=== PATIENT | male | born 1945 | race Caucasian/White ===

== ENCOUNTER 2016-07-16 03:27 | Observation (INO) | payer MEDICARE ==
[2016-07-16] VITALS (9 sets, daily range): BP systolic 102–143; BP diastolic 60–91; PULSE 49–105; TEMP 98–100.2
[~2016-07-16] VITALS: Ht 167.6 cm; Wt 88.4 kg
[2016-07-16 04:14] LABS: BASO # 0.1 (0.0-0.2); BASO % 0.7 % (0.0-2.0); EOS # 0.2 (0.0-0.7); EOS % 1.9 % (0-4.0); GRAN # 8.6 (1.4-6.5); GRAN % 70.5 % (42.2-75.2); HEMATOCRIT 39.9 % (42.0-52.0); HEMOGLOBIN 13.5 g/dl (13.5-18.0); LYMPH # 2.5 (1.2-3.4); LYMPH % 20.1 % (20.0-51.0); MEAN CELL VOLUME 87 fl (80.0-100.0); MEAN CORPUSCULAR HEMOGLOBIN 29 pg (27.0-31.0); MEAN CORPUSCULAR HGB CONC 34 g/dl (33.0-37.0); MEAN PLATELET VOLUME 9.8 fl (7.4-10.4); MONO # 0.8 (0.1-0.6); MONO % 6.5 % (1.7-9.3); PLATELET COUNT 269 K/mm3 (130-400); REDCELL DISTRIBUTION WIDTH-CV 13.7 % (11.5-14.5); WHITE BLOOD COUNT 12.2 K/mm3 (4.8-10.8)
[2016-07-16 04:26] LABS: ADJUSTED CALCIUM 9.1 mg/dL (8.4-10.2); ALANINE AMINOTRANSFERASE 40 U/L (21-72); ALBUMIN 4.2 gm/dL (3.5-5.0); ALKALINE PHOSPHATASE 67 U/L (50-136); ANION GAP 13 mmol/L (7-16); BILIRUBIN,TOTAL 0.6 mg/dL (0.0-1.0); BLOOD UREA NITROGEN 15 mg/dL (9-20); CALCIUM 9.3 mg/dL (8.4-10.2); CARBON DIOXIDE 27 mmol/L (22-30); CHLORIDE 101 mmol/L (98-107); CREATININE, serum 0.97 mg/dL (0.66-1.25); GLUCOSE 135 mg/dL (74-106); LIPASE 51 U/L (23-300); POTASSIUM 3.6 mmol/L (3.4-5.0); SODIUM 141 mmol/L (137-145); TOTAL PROTEIN 7.1 gm/dL (6.4-8.2)
[2016-07-16 04:28] LABS: C-REACTIVE PROTEIN < 0.5 mg/dL (0.0-0.9)
[2016-07-16 04:44] LABS: TROPONIN-I < 0.012 ng/mL (0.000-0.034)
[2016-07-16] MEDS ORDERED: HYZAAR 25 MG-101 TAB PO (04:54)
[2016-07-16] MEDS ORDERED: RT ADVAIR 128 DISKUS IH (04:54)
[2016-07-16] MEDS ORDERED: LIPITOR20 MG PO (04:56)
[2016-07-16] MEDS ORDERED: ZYRTEC 10MG10 MG PO (04:56)
[2016-07-16] MEDS ORDERED: SINGULAIR 110 MG/TAB PO (04:57)
[2016-07-16] MEDS ORDERED: FLOMAX 0.40.4 MG/CAP PO (04:57)
[2016-07-16] MEDS ORDERED: DYMISTA1 SPR NS (04:58)
[2016-07-16] MEDS ORDERED: COMBIGAN 0.2%-0.5 ML OS (05:00)
[2016-07-17 04:19] VITALS: BP 126/64; PULSE 58; TEMP 98.2
[2016-07-17 08:32] VITALS: BP 111/64; PULSE 50; TEMP 99.1
[2016-07-17 12:24] VITALS: BP 118/68; PULSE 78; TEMP 98.8
[2016-07-17] MEDS ORDERED: NORCO 325 MG-51 TAB PO (12:49)
== END 2016-07-17 14:45 | disposition home or self-care (01) ==
LOC: COL.ER 03:27 → JCC 07:07
PROVIDERS: Emergency Medicine
DX: K80.12 Calculus of gallbladder with acute and chronic cholecystitis without obstruction (principal); K66.8 Other specified disorders of peritoneum; J45.909 Unspecified asthma, uncomplicated; E78.5 Hyperlipidemia, unspecified; I10 Essential (primary) hypertension
CPT/HCPCS: G0378; J0694; J1170; J1956; J2175; J2405; J2704; J2710; J3010; J7120; Q9967

== ENCOUNTER 2016-09-14 11:00 | Outpatient (RCR) | payer MEDICARE ==
[~2016-09-14 11:00] MED LIST: COMBIGAN 0.2%-0.5 ML OS; DYMISTA1 SPR NS; FLOMAX 0.40.4 MG/CAP PO; HYZAAR 25 MG-101 TAB PO; LIPITOR20 MG PO; NORCO 325 MG-51 TAB PO; RT ADVAIR 128 DISKUS IH; SINGULAIR 110 MG/TAB PO; ZYRTEC 10MG10 MG PO
== END 2016-11-02 ==
LOC: MKS.ESL.PT
DX: M48.06 Spinal stenosis, lumbar region (principal)
CPT/HCPCS: G8978-GP; G8990-GP; G8991-GP; G8992-GP

== ENCOUNTER 2019-12-10 12:38 | Outpatient (RCR) | payer MEDICARE | END 2020-02-11 | disposition home or self-care (01) | LOC: WSST | DX: R13.12 Dysphagia, oropharyngeal phase (principal) ==

== ENCOUNTER 2020-02-13 22:12 | Emergency (ER) | payer MEDICARE ==
[~2020-02-13] VITALS: Ht 165.1 cm; Wt 92.7 kg
[2020-02-13 22:20] VITALS: TEMP 98
[2020-02-13 22:59] LABS: BASO # 0.1 (0.0-0.2); BASO % 1.2 % (0.0-2.0); EOS # 0.3 (0.0-0.7); EOS % 2.9 % (0-4.0); GRAN # 5.4 (1.4-6.5); HEMATOCRIT 44.6 % (42.0-52.0); HEMOGLOBIN 15.1 g/dl (13.5-18.0); LYMPH # 2.6 (1.2-3.4); LYMPH % 28.4 % (20.0-51.0); MEAN CELL VOLUME 84 fl (80.0-100.0); MEAN CORPUSCULAR HEMOGLOBIN 29 pg (27.0-31.0); MEAN CORPUSCULAR HGB CONC 34 g/dl (33.0-37.0); MEAN PLATELET VOLUME 9.3 fl (7.4-10.4); MONO # 0.8 (0.1-0.6); MONO % 8.3 % (1.7-9.3); PLATELET COUNT 258 K/mm3 (130-400); REDCELL DISTRIBUTION WIDTH-CV 13.8 % (11.5-14.5)
[2020-02-13 23:09] LABS: ALANINE AMINOTRANSFERASE 31 U/L (4-49); ALBUMIN 4.1 gm/dL (3.5-5.0); ALKALINE PHOSPHATASE 63 U/L (50-136); ANION GAP 10 mmol/L (7-16); AST,SGOT 49 U/L (15-37); BILIRUBIN,TOTAL 0.6 mg/dL (0.0-1.0); BLOOD UREA NITROGEN 18 mg/dL (9-20); CALCIUM 9.4 mg/dL (8.4-10.2); CARBON DIOXIDE 28 mmol/L (22-30); CHLORIDE 101 mmol/L (98-107); CREATININE, serum 1.07 (0.66-1.25); GLUCOSE 130 mg/dL (74-106); POTASSIUM 3.4 mmol/L (3.4-5.0); SODIUM 140 mmol/L (137-145); TOTAL PROTEIN 7.1 gm/dL (6.4-8.2)
[2020-02-13 23:22] LABS: TROPONIN-I < 0.012 ng/mL (0.000-0.035)
[2020-02-14 02:20] VITALS: BP 134/85; PULSE 72
== END 2020-02-14 02:20 | disposition home or self-care (01) ==
LOC: COL.ER 22:12
PROVIDERS: Emergency Medicine
DX: R07.89 Other chest pain (principal); I10 Essential (primary) hypertension; Z88.0 Allergy status to penicillin; Z88.8 Allergy status to other drugs, medicaments and biological substances; Z87.891 Personal history of nicotine dependence

== ENCOUNTER → 2020-02-27 | Outpatient (CLI) | payer MEDICARE | LOC: COL.RAD 12:18 | DX: M47.816 Spondylosis without myelopathy or radiculopathy, lumbar region (principal); M43.15 Spondylolisthesis, thoracolumbar region; M48.05 Spinal stenosis, thoracolumbar region; M47.814 Spondylosis without myelopathy or radiculopathy, thoracic region; M47.812 Spondylosis without myelopathy or radiculopathy, cervical region; G95.89 Other specified diseases of spinal cord; M48.03 Spinal stenosis, cervicothoracic region | CPT/HCPCS: A9585 ==

== ENCOUNTER 2020-04-18 11:00 | Outpatient (RCR) | payer MEDICARE | END 2020-05-12 | disposition home or self-care (01) | LOC: MKS.ESL.PT | DX: M48.061 Spinal stenosis, lumbar region without neurogenic claudication (principal) | CPT/HCPCS: G0283-GP ==

== ENCOUNTER 2021-03-24 14:30 | Outpatient (RCR) | payer MEDICARE | END 2021-04-06 | disposition home or self-care (01) | LOC: MKS.ESL.PT | DX: M48.062 Spinal stenosis, lumbar region with neurogenic claudication (principal) ==

== ENCOUNTER → 2022-03-17 | Outpatient (CLI) | payer MEDICARE | LOC: COL.RAD 10:03 | DX: M25.561 Pain in right knee (principal); M25.562 Pain in left knee; G89.29 Other chronic pain | CPT/HCPCS: J3301; Q9967 ==

== ENCOUNTER 2023-11-27 15:52 | Emergency (ER) | payer MEDICARE ==
[~2023-11-27] VITALS: Ht 165.1 cm; Wt 90.9 kg
[2023-11-27 16:02] VITALS: TEMP 97.9
[2023-11-27 17:27] LABS: BASO # 0.1 K/mm3 (0.0-0.2); BASO % 1.3 % (0.0-2.0); EOS # 0.4 K/mm3 (0.0-0.7); EOS % 4.9 % (0.0-4.0); GRAN # 4.5 K/mm3 (1.4-6.5); GRAN % 54.1 % (42.2-75.2); HEMOGLOBIN 14.9 g/dl (13.5-18.0); LYMPH # 2.5 K/mm3 (1.2-3.4); LYMPH % 30.6 % (20.0-51.0); MEAN CELL VOLUME 86 fl (80.0-100.0); MEAN CORPUSCULAR HEMOGLOBIN 30 pg (27-31); MEAN CORPUSCULAR HGB CONC 35 g/dl (33.0-37.0); MEAN PLATELET VOLUME 9.7 fl (7.4-10.4); MONO # 0.7 K/mm3 (0.1-0.6); MONO % 8.9 % (1.7-9.3); PLATELET COUNT 253 K/mm3 (130-400); RED BLOOD COUNT 5.01 M/mm3 (4.20-5.60); REDCELL DISTRIBUTION WIDTH-CV 13.5 % (11.5-14.5)
[2023-11-27] MEDS ORDERED: ASPIRIN 81M81 MG/TA2 PO (17:37)
[2023-11-27] MEDS ORDERED: VIGAMOX 0.5% 3 M3 ML OP (17:37)
[2023-11-27] MEDS ORDERED: ACULAR 3 ML3 ML OU (17:37)
[2023-11-27] MEDS ORDERED: GLUCOSAMINE 1000 (17:38)
[2023-11-27] MEDS ORDERED: ALL DAY ALLERGY10 M3 PO (17:38)
[2023-11-27] MEDS ORDERED: PREDFORTE5ML (17:39)
[2023-11-27] MEDS ORDERED: HEALTHY EYES S1 EAC2 PO (17:39)
[2023-11-27] MEDS ORDERED: BLINK TEARS15 ML OP (17:40)
[2023-11-27 17:45] LABS: ALBUMIN 3.5 g/dL (3.4-4.8); BILIRUBIN,TOTAL 0.4 mg/dL (0.2-1.2); CALCIUM 9.7 mg/dL (8.4-10.2); CREATININE, serum 0.87 mg/dL (0.72-1.25); POTASSIUM 3.6 mEq/L (3.5-4.5); TOTAL PROTEIN 6.8 g/dl (6.2-8.1)
[2023-11-27 18:33] VITALS: BP 137/96; PULSE 55
== END 2023-11-27 18:33 | disposition home or self-care (01) ==
LOC: COL.ER 15:52
PROVIDERS: Physician Assistant
DX: R22.41 Localized swelling, mass and lump, right lower limb (principal)

== ENCOUNTER → 2023-11-28 | Outpatient (CLI) | payer MEDICARE ==
[~2023-11-28] MED LIST changes: +ACULAR 3 ML3 ML OU; +ALL DAY ALLERGY10 M3 PO; +ASPIRIN 81M81 MG/TA2 PO; +BLINK TEARS15 ML OP; +GLUCOSAMINE 1000; +HEALTHY EYES S1 EAC2 PO; +PREDFORTE5ML; +VIGAMOX 0.5% 3 M3 ML OP
== END ==
LOC: COL.RAD 09:57
DX: M71.21 Synovial cyst of popliteal space [Baker], right knee (principal)